=== PATIENT | female | born 1995 | race Asian ===

== ENCOUNTER → 2020-09-30 10:17 | Outpatient (CLI) | payer OTHER, SELFPAY ==
--- NOTE | 2020-09-30 10:18 | DI.US.S_ITS ---
PROCEDURE: US OB <= 14 WEEKS FETUS INDICATIONS: DATES OUTSIDE/PRIOR DATING DATA: First dating scan (date and location): 09/30/2020. Estimated date of delivery ([facility]) from first dating scan: 05/28/2020. TECHNIQUE: Real-time scanning was performed of the fetus and maternal pelvic organs, with image documentation. Endovaginal scanning was also performed to better visualize the fetus and maternal ovaries. COMPARISON: None. FINDINGS: Embryo: 2 mm crown-rump length corresponding to 5 weeks 5 days. Heart rate: 102 beats per minute Measurement variability in dating: +/- 4 weeks by LMP, +/- 7 days by mean sac diameter (use before 6 weeks gestation if crown-rump length not able to be measured), +/- 5 days by crown-rump length (up to 8 weeks 6 days gestation), +/- 7 days by crown-rump length (up to 13 weeks 6 days gestation). Maternal organs: Ovaries within normal limits . IMPRESSION: 5 week 5 day single living IUP. Dictated by: Kishore MONTEMAYOR Interpreted: Ivan Royal MD on 09/30/2020 at 11:57 Transcribed by: YI on 09/30/2020 at 11:58 Approved by: Ivna Royal M.D. on 09/30/2020 at 13:35
== END ==
PROVIDERS: PCP Obstetrics & Gynecology; Referring Provider Obstetrics & Gynecology; Visit Provider Obstetrics & Gynecology
DX: Z36.87 Encounter for antenatal screening for uncertain dates (principal); Z3A.01 Less than 8 weeks gestation of pregnancy
CPT/HCPCS: 76801; 76817

== ENCOUNTER → 2020-10-28 11:41 | Outpatient (CLI) | payer OTHER, SELFPAY ==
[2020-10-28 12:49] LABS: Add Manual Diff / Slide Review NO; Basophils Absolute Auto 0 /uL (0-100); Basophils Percent Auto 0.2 % (0-2); Eosinophils Absolute Auto 0 /uL (0-450); Eosinophils Percent Auto 0.3 % (2-4); Hematocrit 41.8 % (36-46); Hemoglobin 14.7 g/dL (12.0-16.0); Lymphocytes Absolute Auto 1600 /uL (1100-4500); Lymphocytes Percent Auto 19.5 % (25-40); Mean Corpuscular HGB Conc 35.3 % (30-36); Mean Corpuscular Hemoglobin 32.9 PG (26-34); Mean Corpuscular Volume 93.4 fL (80-100); Monocytes Absolute Auto 500 /uL (0-900); Monocytes Percent Auto 6.6 % (3-14); Neutrophils Absolute Auto 6100 /uL (1500-7000); Neutrophils Percent Auto 73.4 % (50-75); Platelet Count 238 X10^3/uL (150-400); Red Blood Cell Count 4.47 X10^6/uL (4.0-5.2); White Blood Cell Count 8.3 X10^3/uL (4.5-11.0)
[2020-10-28 20:06] LABS: HIV 1 & 2 Ab/Ag 4th Gen Combo NEGATIVE (NEGATIVE); Hep C Virus Ab w/Reflex Quant NEGATIVE s/c (NEGATIVE); Hepatitis B Surface Antigen NEGATIVE s/c (NEGATIVE); Rubella Antibody IgG 22.8 IU/mL (>15)
[2020-10-29 11:21] LABS: RPR Screen Non Reactive (Non Reactive); Varicella IgG Antibody 1044 index (Immune >165)
== END ==
PROVIDERS: Referring Provider Obstetrics & Gynecology; Visit Provider Obstetrics & Gynecology
DX: Z34.81 Encounter for supervision of other normal pregnancy, first trimester (principal)
CPT/HCPCS: 36415; 80055; 86787; 86803; 86850; 86900; 86901; 87389

== ENCOUNTER → 2020-12-01 12:30 | Outpatient (CLI) | payer OTHER, SELFPAY ==
[2020-12-01 15:55] LABS: Urine N gonorrhoeae NOT DETECTED
[2020-12-01 16:33] LABS: Urine Chlamydia NOT DETECTED
== END ==
PROVIDERS: Visit Provider Obstetrics & Gynecology
DX: Z34.02 Encounter for supervision of normal first pregnancy, second trimester (principal); Z3A.14 14 weeks gestation of pregnancy
CPT/HCPCS: 87491; 87591